=== PATIENT | male | born 2000 | race Caucasian/White ===

== ENCOUNTER → 2022-02-10 | Outpatient (CLI) | payer OTHER | LOC: MHCPAIN 14:48 | DX: M25.512 Pain in left shoulder (principal); Z98.890 Other specified postprocedural states | CPT/HCPCS: G0463 ==

== ENCOUNTER → 2022-02-11 | Outpatient (CLI) | payer OTHER | LOC: COL.RAD 02-10 16:06 | DX: M25.812 Other specified joint disorders, left shoulder (principal) ==

== ENCOUNTER → 2022-03-24 | Outpatient (CLI) | payer OTHER | LOC: MHCPAIN 14:36 | DX: M25.512 Pain in left shoulder (principal); Z98.890 Other specified postprocedural states | CPT/HCPCS: G0463 ==

== ENCOUNTER → 2022-10-26 | Outpatient (CLI) | payer OTHER | LOC: COL.RAD 07:13 | DX: M25.312 Other instability, left shoulder (principal); S43.085S Other dislocation of left shoulder joint, sequela; M89.9 Disorder of bone, unspecified | CPT/HCPCS: A9575; Q9967 ==